=== PATIENT | female | born 1930 | race Caucasian/White ===

== ENCOUNTER 2017-03-22 10:37 | Emergency (ER) | payer MEDICARE, OTHER ==
[~2017-03-22 10:37] MED LIST: B-121000 MCG PO; BACTRIM DS DPS1 TAB PO; DIOVAN320 MG PO; FEOSOL325 MG PO; MIRALAX DPS17 GM PO; SYNTHROID137 MCG PO; TYLENOL325 MG PO; VITAMIN C250 MG PO
--- NOTE | 2017-03-24 13:41 | ER ---
ADMIT: 03/22/2017 RM/LOC: ER [facility] MR#: [id number] [address] [id number] GEOVANNY BARTON [address] [place] [address] Emergency Room Report SEX: F AGE: 86 : 1930 DATE: 03/22/2017 CHIEF COMPLAINT: Right shoulder pain. HISTORY OF PRESENT ILLNESS: An 86-year-old female, who presents to the ER after she fell yesterday at home. She states she was walking across the room without her walker when she got her feet tangled up in her oxygen tubing, fell landing directly on her right shoulder. She did not fall on her outstretched hand. Currently, rates her pain as 9/10. Denies hitting her head. Initially after the injury, she had full range of motion about the arm. Increasing today, she has become more stiff and sore. She is on oxygen chronically for what sounds like secondary ramifications on her sleep apnea. She is on clopidogrel. Her daughter states this is secondary to some tortuous veins in her cervical spine. No numbness or tingling distally. COURSE IN THE EMERGENCY ROOM: The patient was seen, examined, afebrile, and nontoxic. No acute distress. She is wearing oxygen tubing. Shoulder has tenderness about the greater tuberosity kind of extending medially into the upper arm. There is some ecchymosis medially on the upper arm. She does have limited range of motion secondary to pain. However, she is able to initiate movement. No other injuries on exam. Pupils are equal and reactive. She is alert and appropriate with exam. She has good radial pulses compared bilaterally. Skin is warm, dry, intact. I did get routine shoulder view. No acute fracture or dislocation. She does have some calcific tendinitis about the greater tuberosity. IMPRESSION: Contusion right shoulder. DISPOSITION: The patient was discharged to home. Continue her home medications. She has a regimen of tramadol and Tylenol that she is already on for her low back pain. I encouraged her to continue using this. Activity as tolerated. I did offer a sling, however, she has a wheeled walker and this is greatly limiting her mobility. She states she has been getting around with a walker since this happened without difficulty. Follow up with Dr. Rojas this week. I did encourage her to continue with light motion of the shoulder to keep her range of motion. Questions sought and answered best of my ability and the patient's satisfaction. Discharged to home in stable condition. FRANCESCA Flannery / Yann Gomez MD / carl JOB #: [id number] CC: Yann Gomez MD, Attending Physician Alicia Rojas MD, Family Physician
[2017-05-08] MEDS ORDERED: ASA CHILDREN'S81 MG PO (15:46)
[2017-05-08] MEDS ORDERED: NORVASC10 MG PO (15:46)
[2017-05-08] MEDS ORDERED: ZYRTEC10 MG PO (15:47)
[2017-05-08] MEDS ORDERED: PLAVIX75 MG PO (15:47)
[2017-05-08] MEDS ORDERED: LASIX20 MG PO (15:47)
[2017-05-08] MEDS ORDERED: NOVOLIN R,100 UNITS/ SQ (15:48)
[2017-05-08] MEDS ORDERED: CREON DR 24,001 EACH PO (15:48)
[2017-05-08] MEDS ORDERED: METOPROLOL TART50 MG PO (15:49)
[2017-05-08] MEDS ORDERED: SINGULAIR10 MG PO (15:49)
[2017-05-08] MEDS ORDERED: MELATIN3 MG PO (15:49)
[2017-05-08] MEDS ORDERED: ZOCOR DPS10 MG PO (15:49)
[2017-05-08] MEDS ORDERED: ULTRAM DPS50 MG PO (15:50)
[2017-05-08] MEDS ORDERED: DIOVAN320 MG PO (15:50)
[2017-05-08] MEDS ORDERED: LANTUS100 UNITS/ SQ (15:50)
[2017-05-08] MEDS ORDERED: CENTRUM COMPLE1 EACH PO (15:51)
[2017-05-08] MEDS ORDERED: VITAMIN D31000 UNIT PO (15:51)
[2017-05-08] MEDS ORDERED: GABAPENTIN100 MG PO (15:51)
[2017-05-08] MEDS ORDERED: MOBIC DPS7.5 MG PO (15:52)
[2017-05-08] MEDS ORDERED: PROTONIX40 MG PO (15:52)
[2017-05-08] MEDS ORDERED: AZELASTINE137 MCG/0. NS (15:53)
[2017-05-08] MEDS ORDERED: SYNTHROID175 MCG PO (15:54)
[2017-05-08] MEDS ORDERED: NOVOLIN R100 UNIT/1 SQ (15:54)
[2017-05-08] MEDS ORDERED: SUDAFED DPS30 MG PO (15:55)
[2017-05-08] MEDS ORDERED: ANTIVERT-DPS25 MG PO (15:55)
[2017-05-08] MEDS ORDERED: CLOTRIMAZOLE AF30 GM TP (15:56)
[2017-05-08] MEDS ORDERED: CALTRATE-600 W600 MG PO (15:56)
[2017-05-08] MEDS ORDERED: NORVASC2.5 MG PO (15:57)
[2017-05-08] MEDS ORDERED: ZITHROMAX250 MG PO (15:57)
[2017-05-08] MEDS ORDERED: NYSTATIN CREAM15 GM TP (15:57)
== END 2017-03-22 12:28 | disposition home or self-care (01) ==
LOC: ER 10:37
DX: S40.011A Contusion of right shoulder, initial encounter (principal); I10 Essential (primary) hypertension; E11.9 Type 2 diabetes mellitus without complications; I42.9 Cardiomyopathy, unspecified; Z86.73 Personal history of transient ischemic attack (TIA), and cerebral infarction without residual deficits; Z90.49 Acquired absence of other specified parts of digestive tract; Z90.721 Acquired absence of ovaries, unilateral; Z88.1 Allergy status to other antibiotic agents; Z88.8 Allergy status to other drugs, medicaments and biological substances; Z79.4 Long term (current) use of insulin; Z79.01 Long term (current) use of anticoagulants; Z79.82 Long term (current) use of aspirin; Z79.899 Other long term (current) drug therapy; W01.0XXA Fall on same level from slipping, tripping and stumbling without subsequent striking against object, initial encounter; Y92.009 Unspecified place in unspecified non-institutional (private) residence as the place of occurrence of the external cause